=== PATIENT | female | born 1990 | race Two or more races ===

== ENCOUNTER 2023-08-11 17:52 | Emergency (ER) | payer OTHER ==
[~2023-08-11] VITALS: Ht 160 cm; Wt 91.7 kg
[2023-08-11 19:58] VITALS: BP 148/86; PULSE 90; RESP 18; TEMP 99; O2SAT 98
[2023-08-11] MEDS ORDERED: FLUT1SPR5 (20:14)
[2023-08-11] MEDS ORDERED: AMOX500C2 PO (20:14)
[2023-08-11] MEDS ORDERED: MONT10TA23 PO (20:14)
[2023-08-11] MEDS ORDERED: PRED20TA2 PO (20:14)
== END 2023-08-11 20:37 | disposition home or self-care (01) ==
LOC: ER 17:52
DX: J03.90 Acute tonsillitis, unspecified (principal); J32.0 Chronic maxillary sinusitis